=== PATIENT | female | born 1985 | race Hispanic/Latino ===

== ENCOUNTER → 2021-03-28 | Outpatient (CLI) | payer BC ==
[~2021-03-28] MED LIST: BENTYL20 MG PO; CARAFATE1 GM PO; DEXILANT60 MG PO; ENTOCORT EC3 MG PO; ZEGERID 20 MG1 EACH PO
== END ==
LOC: DX 08:46
PROVIDERS: ATTEND Internal Medicine Gastroenterology
DX: K50.90 Crohn's disease, unspecified, without complications (principal); Z20.822 Contact with and (suspected) exposure to COVID-19
CPT/HCPCS: 74250; U0002

== ENCOUNTER 2021-04-09 02:07 | Emergency (ER) | payer BC ==
[~2021-04-09] VITALS: Ht 152.4 cm; Wt 52.6 kg
[2021-04-09] MEDS ORDERED: SODIUM CHLORIDE 0.9% 1000ML 1,000 ML IV STA (02:14)
[2021-04-09] MEDS ORDERED: ONDANSETRON HCL INJ 2MG/ML 2ML 2 MG/ML VIAL IV STA (02:14)
[2021-04-09] MEDS ORDERED: FAMOTIDINE 20 MG/2 ML VIAL IV STA (02:14)
[2021-04-09] MEDS ORDERED: PROMETHAZINE 25MG/ NS 50ML (IV) IV ONE (02:30)
[2021-04-09 02:43] LABS: BASOPHILS # (AUTO) 0.1 (0.0-0.1); BASOPHILS % 0.7 % (0.0-1.0); EOSINOPHILS # (AUTO) 0.2 (0.0-0.4); EOSINOPHILS % 2.1 % (0.0-6.0); HEMATOCRIT 38.7 % (34.2-44.1); HEMOGLOBIN 12.8 g/dL (12.0-16.0); LYMPHOCYTES # (AUTO) 3.1 (1.0-3.2); LYMPHOCYTES % 36.9 % (18.0-39.1); MEAN CORPUSCULAR HEMOGLOBIN 30.5 pg (28-32); MEAN CORPUSCULAR HGB CONC 33.1 g/dL (31-35); MEAN CORPUSCULAR VOLUME 92.1 fL (81-99); MONOCYTES # (AUTO) 0.9 (0.2-0.8); MONOCYTES % 10.3 % (4.4-11.3); NEUTROPHILS # (AUTO) 4.2 (2.1-6.9); NEUTROPHILS % 49.8 % (38.7-80.0); PLATELET COUNT 310 x10e3/uL (140-360); RED CELL DISTRIBUTION WIDTH 11.8 % (11.7-14.4)
[2021-04-09] MEDS ORDERED: MEPERIDINE HCL/PF 25 MG/0.5 ML AMP IV ONE (02:45)
[2021-04-09] MEDS ORDERED: MEPERIDINE HCL INJ 25 MG/ML VIAL ONE (02:52)
[2021-04-09 03:01] LABS: CLARITY,URINE CLOUDY (CLEAR); COLOR,URINE AMBER (YELLOW); KETONES,URINE TRACE (NEGATIVE); LEUKOCYTE ESTERASE ,URINE TRACE (NEGATIVE); NITRITE,URINE NEGATIVE (NEGATIVE); PROTEIN,URINE DIPSTICK 1+ (NEGATIVE); URINE UROBILINOGEN 1 mg/dL (0.2 - 1)
[2021-04-09 03:02] LABS: BACTERIA,URINE MANY /HPF
[2021-04-09 03:03] LABS: EPITHELIAL CELLS,URINE MANY /LPF
[2021-04-09 03:05] LABS: ALANINE AMINOTRANSFERASE 13 IU/L (0-55); ALBUMIN 4.1 g/dL (3.5-5.0); ALBUMIN/GLOBULIN RATIO 1.2 (0.8-2.0); ALKALINE PHOSPHATASE 49 IU/L (40-150); ANION GAP 17.1 mmol/L (8-16); BLOOD UREA NITROGEN 14 mg/dL (7-26); BUN/CREATININE RATIO 17 (6-25); CALCIUM 8.8 mg/dL (8.4-10.2); CARBON DIOXIDE 23 mmol/L (22-29); CHLORIDE 102 mmol/L (98-107); CREATININE, SERUM 0.82 mg/dL (0.57-1.11); EST GLOMERULAR FILTRATION RATE > 60 ML/MIN (60-); GLUCOSE 115 mg/dL (74-118); LIPASE 36 U/L (8-78); POTASSIUM 3.1 mmol/L (3.5-5.1); SODIUM 139 mmol/L (136-145)
[2021-04-09] MEDS ORDERED: IOPAMIDOL 370 MG/ML 200 ML INFUS..BTL INJ ONE (03:43)
[2021-04-09] MEDS ORDERED: SODIUM CHLORIDE 0.9% 50ML 50 ML ONE (03:43)
[2021-04-09] MEDS ORDERED: METHYLPREDNISOLONE SOD SUCC 125 MG/2ML VIAL IV STA (04:59)
[2021-04-09] MEDS ORDERED: ONDANSETRON ODT4 MG PO (05:03)
[2021-04-09] MEDS ORDERED: TYLENOL # 31 EA PO (05:03)
[2021-04-09] MEDS ORDERED: FLAGYL500 MG PO (05:03)
[2021-04-09] MEDS ORDERED: CIPRO500 MG PO (05:03)
[2021-04-09] MEDS ORDERED: PREDNISONE20 MG PO (05:03)
[2021-04-09 05:21] VITALS: BP 101/66
== END 2021-04-09 05:23 | disposition home or self-care (01) ==
LOC: ER 02:11
DX: R10.9 Unspecified abdominal pain (principal); N20.0 Calculus of kidney; K52.9 Noninfective gastroenteritis and colitis, unspecified; N39.0 Urinary tract infection, site not specified
CPT/HCPCS: 36415; 74177; 80053; 81001; 81025; 83690; 85025; 99284; J2175 ×2; J2405; J2930; J7030; Q9967

== ENCOUNTER 2021-08-20 10:44 | Emergency (ER) | payer OTHER ==
[~2021-08-20] VITALS: Ht 152.4 cm; Wt 52.6 kg
[~2021-08-20 10:44] MED LIST changes: +CIPRO500 MG PO; +FLAGYL500 MG PO; +ONDANSETRON ODT4 MG PO; +PREDNISONE20 MG PO; +TYLENOL # 31 EA PO
[2021-08-20] MEDS ORDERED: SODIUM CHLORIDE 0.9% 1000ML 1,000 ML IV STA (11:05)
[2021-08-20] MEDS ORDERED: ONDANSETRON HCL INJ 2MG/ML 2ML 2 MG/ML VIAL IV NR (11:05)
[2021-08-20 11:15] LABS: BASOPHILS # (AUTO) 0.1 (0.0-0.1); BASOPHILS % 0.8 % (0.0-1.0); EOSINOPHILS # (AUTO) 0.3 (0.0-0.4); HEMATOCRIT 40.3 % (34.2-44.1); HEMOGLOBIN 13.2 g/dL (12.0-16.0); LYMPHOCYTES # (AUTO) 1.8 (1.0-3.2); LYMPHOCYTES % 28.3 % (18.0-39.1); MEAN CORPUSCULAR HEMOGLOBIN 30.2 pg (28-32); MEAN CORPUSCULAR HGB CONC 32.8 g/dL (31-35); MEAN CORPUSCULAR VOLUME 92.2 fL (81-99); MONOCYTES # (AUTO) 0.5 (0.2-0.8); MONOCYTES % 7.9 % (4.4-11.3); NEUTROPHILS # (AUTO) 3.7 (2.1-6.9); NEUTROPHILS % 58.8 % (38.7-80.0); PLATELET COUNT 316 x10e3/uL (140-360); RED BLOOD COUNT 4.37 x10e6/uL (3.6-5.1); RED CELL DISTRIBUTION WIDTH 12.2 % (11.7-14.4)
[2021-08-20] MEDS ORDERED: DICYCLOMINE HCL 20 MG/2 ML VIAL IM ONE (11:15)
[2021-08-20 11:34] LABS: ALANINE AMINOTRANSFERASE 12 IU/L (0-55); ALBUMIN 4.2 g/dL (3.5-5.0); ALBUMIN/GLOBULIN RATIO 1.2 (0.8-2.0); ALKALINE PHOSPHATASE 52 IU/L (40-150); AMYLASE 49 U/L (25-125); ANION GAP 12.7 mmol/L (8-16); BLOOD UREA NITROGEN 11 mg/dL (7-26); BUN/CREATININE RATIO 14 (6-25); CALCIUM 8.9 mg/dL (8.4-10.2); CARBON DIOXIDE 25 mmol/L (22-29); CHLORIDE 103 mmol/L (98-107); CREATINE KINASE 37 IU/L (29-168); EST GLOMERULAR FILTRATION RATE 80 ML/MIN (60-); GLUCOSE 91 mg/dL (74-118); LIPASE 29 U/L (8-78); MAGNESIUM 1.8 MG/DL (1.3-2.1); POTASSIUM 3.7 mmol/L (3.5-5.1); SODIUM 137 mmol/L (136-145)
[2021-08-20] MEDS ORDERED: SODIUM CHLORIDE 0.9% 50ML 50 ML ONE (12:25)
[2021-08-20] MEDS ORDERED: IOPAMIDOL 370 MG/ML 200 ML INFUS..BTL INJ ONE (12:25)
[2021-08-20] MEDS ORDERED: FENTANYL CITRATE/PF 100MCG/2 ML INJ IV NR (12:45)
[2021-08-20 13:28] LABS: CLARITY,URINE CLEAR (CLEAR); COLOR,URINE YELLOW (YELLOW); KETONES,URINE 2+ (NEGATIVE); LEUKOCYTE ESTERASE ,URINE NEGATIVE (NEGATIVE); NITRITE,URINE NEGATIVE (NEGATIVE); PROTEIN,URINE DIPSTICK NEGATIVE (NEGATIVE); URINE UROBILINOGEN 0.2 mg/dL (0.2 - 1)
[2021-08-20 13:29] LABS: BACTERIA,URINE RARE /HPF; EPITHELIAL CELLS,URINE FEW /LPF; RBC,URINE 0-5 /HPF (0-5); WBC,URINE (MAN) 0-5 /HPF (0-5)
[2021-08-20] MEDS ORDERED: SODIUM CHLORIDE 0.9% 1000ML 1,000 ML IV ONE (13:45)
[2021-08-20 14:51] VITALS: BP 108/72
== END 2021-08-20 14:55 | disposition home or self-care (01) ==
LOC: ER 10:51
DX: R10.12 Left upper quadrant pain (principal); K29.70 Gastritis, unspecified, without bleeding; K29.80 Duodenitis without bleeding
CPT/HCPCS: 36415; 74177; 80053; 81001; 82150; 82550; 82553; 83690; 83735; 84484; 84702; 85025; 87086; 99284; C9113; J0500; J2405; J3010; J7030; Q9967

== ENCOUNTER 2022-06-28 23:33 | Emergency (ER) | payer OTHER ==
[~2022-06-28] VITALS: Ht 152.4 cm; Wt 52.6 kg
[2022-06-28] MEDS ORDERED: SODIUM CHLORIDE 0.9% 1000ML 1,000 ML IV STA (23:36)
[2022-06-28] MEDS ORDERED: ONDANSETRON HCL INJ 2MG/ML 2ML 2 MG/ML VIAL IV STA (23:36)
[2022-06-28] MEDS ORDERED: ACETAMINOPHEN 325 MG TAB PO STA (23:36)
[2022-06-28] MEDS ORDERED: METHYLPREDNISOLONE SOD SUCC 125 MG/2ML VIAL IV STA (23:54)
[2022-06-29 00:19] LABS: BASOPHILS # (AUTO) 0.1 (0.0-0.1); BASOPHILS % 0.6 % (0.0-1.0); EOSINOPHILS # (AUTO) 0.1 (0.0-0.4); EOSINOPHILS % 1.1 % (0.0-6.0); LYMPHOCYTES # (AUTO) 2.2 (1.0-3.2); LYMPHOCYTES % 24.4 % (18.0-39.1); MEAN CORPUSCULAR HEMOGLOBIN 29.9 pg (28-32); MEAN CORPUSCULAR HGB CONC 32.4 g/dL (31-35); MONOCYTES # (AUTO) 0.7 (0.2-0.8); NEUTROPHILS # (AUTO) 5.9 (2.1-6.9); NEUTROPHILS % 65.7 % (38.7-80.0); PLATELET COUNT 311 x10e3/uL (140-360); RED BLOOD COUNT 4.02 x10e6/uL (3.6-5.1); RED CELL DISTRIBUTION WIDTH 11.8 % (11.7-14.4)
[2022-06-29 00:20] LABS: COLOR,URINE AMBER (YELLOW)
[2022-06-29 00:21] LABS: CLARITY,URINE SL CLOUDY (CLEAR); KETONES,URINE 2+ (NEGATIVE); LEUKOCYTE ESTERASE ,URINE NEGATIVE (NEGATIVE); NITRITE,URINE NEGATIVE (NEGATIVE); PROTEIN,URINE DIPSTICK NEGATIVE (NEGATIVE); URINE UROBILINOGEN 1 mg/dL (0.2 - 1)
[2022-06-29 00:26] LABS: BACTERIA,URINE FEW /HPF; EPITHELIAL CELLS,URINE MODERATE /LPF; MUCUS,URINE FEW (RARE); RBC,URINE 0-5 /HPF (0-5)
[2022-06-29 00:35] LABS: ALBUMIN 4.1 g/dL (3.5-5.0); ALBUMIN/GLOBULIN RATIO 1.2 (0.8-2.0); ANION GAP 14.4 mmol/L (8-16); CALCIUM 8.9 mg/dL (8.4-10.2); CREATININE, SERUM 0.8 mg/dL (0.57-1.11); POTASSIUM 3.4 mmol/L (3.5-5.1)
[2022-06-29] MEDS ORDERED: MEPERIDINE HCL INJ 25 MG/ML VIAL IV STA (00:50)
[2022-06-29] MEDS ORDERED: KETOROLAC TROMETHAMINE 30 MG/ML VIAL IV STA (01:42)
[2022-06-29] MEDS ORDERED: ACETAMINOPHEN 325 MG TAB PO ONE (01:45)
[2022-06-29] MEDS ORDERED: MEPERIDINE HCL INJ 25 MG/ML VIAL IV ONE (02:15)
[2022-06-29 02:58] VITALS: BP 104/63
[2022-06-29] MEDS ORDERED: IOPAMIDOL 370 MG/ML 100 ML INFUS..BTL INJ ONE (06:39)
== END 2022-06-29 03:13 | disposition home or self-care (01) ==
LOC: ER 23:36
DX: R10.33 Periumbilical pain (principal); R11.2 Nausea with vomiting, unspecified; Z87.19 Personal history of other diseases of the digestive system
CPT/HCPCS: 36415; 74177; 80053; 81001; 81025; 83690; 85025; 99284; J1885; J2175; J2405; J2930; J7030; Q9967

== ENCOUNTER → 2022-07-17 | Day surgery (SDC) | payer OTHER ==
[~2022-07-17] MED LIST changes: +DICYCLOMINE HCL20 MG PO; +LIDOCAINE HCL 2% LOCAL INJ 5 ML SDV VIAL INJ ONE; +METOCLOPRAMIDE HCL 10 MG/2ML VIAL ONE; +MIDAZOLAM HCL 2 MG/2 ML VIAL ONE; +POVIDONE IODINE 0.05% 0.05 % ML PO ONE; +PROBIOTIC & AC1 EACH PO; +PROPOFOL IV EMULSION 10 MG/ML 20 ML VIAL ONE
== END | disposition home or self-care (01) ==
LOC: OR 10:33
PROVIDERS: ATTEND Internal Medicine Gastroenterology
DX: K29.50 Unspecified chronic gastritis without bleeding (principal); K31.7 Polyp of stomach and duodenum; K20.90 Esophagitis, unspecified without bleeding; K21.9 Gastro-esophageal reflux disease without esophagitis; K44.9 Diaphragmatic hernia without obstruction or gangrene; Z87.19 Personal history of other diseases of the digestive system; K62.5 Hemorrhage of anus and rectum; N20.0 Calculus of kidney; F41.9 Anxiety disorder, unspecified; Z88.6 Allergy status to analgesic agent; Z88.4 Allergy status to anesthetic agent; Z88.1 Allergy status to other antibiotic agents; Z87.898 Personal history of other specified conditions; Z80.0 Family history of malignant neoplasm of digestive organs; Z83.79 Family history of other diseases of the digestive system
CPT/HCPCS: 43239; 81025; C9113; J2001; J2250; J2704; J2765

== ENCOUNTER 2023-02-18 08:03 | Emergency (ER) | payer BC, OTHER ==
[~2023-02-18] VITALS: Ht 152.4 cm; Wt 52.6 kg
[~2023-02-18 08:03] MED LIST changes: -LIDOCAINE HCL 2% LOCAL INJ 5 ML SDV VIAL INJ ONE; -METOCLOPRAMIDE HCL 10 MG/2ML VIAL ONE; -MIDAZOLAM HCL 2 MG/2 ML VIAL ONE; -POVIDONE IODINE 0.05% 0.05 % ML PO ONE; -PROPOFOL IV EMULSION 10 MG/ML 20 ML VIAL ONE
[2023-02-18] MEDS ORDERED: SODIUM CHLORIDE 0.9% 1000ML 1,000 ML IV ONE (08:15)
[2023-02-18 08:22] LABS: BASOPHILS % 0.2 % (0.0-1.0); EOSINOPHILS % 0.4 % (0.0-6.0); HEMATOCRIT 38.8 % (34.2-44.1); HEMOGLOBIN 12.8 g/dL (12.0-16.0); LYMPHOCYTES # (AUTO) 0.8 (1.0-3.2); MEAN CORPUSCULAR HEMOGLOBIN 29.9 pg (28-32); MEAN CORPUSCULAR VOLUME 90.7 fL (81-99); MONOCYTES # (AUTO) 0.6 (0.2-0.8); MONOCYTES % 6.3 % (4.4-11.3); NEUTROPHILS # (AUTO) 7.7 (2.1-6.9); NEUTROPHILS % 83.8 % (38.7-80.0); PLATELET COUNT 310 x10e3/uL (140-360); RED BLOOD COUNT 4.28 x10e6/uL (3.6-5.1); RED CELL DISTRIBUTION WIDTH 12.4 % (11.7-14.4)
[2023-02-18 08:46] LABS: ALANINE AMINOTRANSFERASE 12 IU/L (0-55); ALBUMIN 4.1 g/dL (3.5-5.0); ALBUMIN/GLOBULIN RATIO 1.1 (0.8-2.0); ALKALINE PHOSPHATASE 56 IU/L (40-150); ANION GAP 15.5 mmol/L (8-16); BLOOD UREA NITROGEN 10 mg/dL (7-26); BUN/CREATININE RATIO 13 (6-25); CALCIUM 8.9 mg/dL (8.4-10.2); CARBON DIOXIDE 21 mmol/L (22-29); CHLORIDE 106 mmol/L (98-107); CREATININE, SERUM 0.75 mg/dL (0.57-1.11); GLUCOSE 95 mg/dL (74-118); LIPASE 46 U/L (8-78); POTASSIUM 3.5 mmol/L (3.5-5.1); SODIUM 139 mmol/L (136-145)
[2023-02-18 09:10] LABS: CLARITY,URINE CLEAR (CLEAR); COLOR,URINE YELLOW (YELLOW); KETONES,URINE 2+ (NEGATIVE); LEUKOCYTE ESTERASE ,URINE NEGATIVE (NEGATIVE); NITRITE,URINE NEGATIVE (NEGATIVE); PROTEIN,URINE DIPSTICK NEGATIVE (NEGATIVE)
[2023-02-18 09:11] LABS: BACTERIA,URINE FEW /HPF; EPITHELIAL CELLS,URINE MODERATE /LPF; MUCUS,URINE MODERATE (RARE); RBC,URINE 0-5 /HPF (0-5); URINE UROBILINOGEN 0.2 mg/dL (0.2 - 1); WBC,URINE (MAN) 0-5 /HPF (0-5)
[2023-02-18] MEDS ORDERED: IOPAMIDOL 370 MG/ML 100 ML INFUS..BTL INJ ONE (09:13)
[2023-02-18] MEDS ORDERED: ONDANSETRON HCL INJ 2MG/ML 2ML 2 MG/ML VIAL IV ONE (09:30)
[2023-02-18] MEDS ORDERED: MEPERIDINE HCL INJ 25 MG/ML VIAL IV ONE (10:00)
[2023-02-18] MEDS ORDERED: FAMOTIDINE 20 MG/2 ML VIAL IV STA (10:14)
[2023-02-18] MEDS ORDERED: DONNATAL/LIDOCAINE/MAALOX 30 ML SUSP PO ONE (10:15)
[2023-02-18 12:42] VITALS: BP 127/81
== END 2023-02-18 12:43 | disposition home or self-care (01) ==
LOC: ER 08:07
DX: R10.11 Right upper quadrant pain (principal); K29.70 Gastritis, unspecified, without bleeding; R11.0 Nausea; Z20.822 Contact with and (suspected) exposure to COVID-19
CPT/HCPCS: 36415; 74177; 80053; 81001; 83690; 84702; 85025; 99284; J2175; J2405; J7030; Q9967; U0002